=== PATIENT | female | born 1960 | race Caucasian/White ===

== ENCOUNTER → 2024-01-03 08:04 | Outpatient (REF) | payer OTHER, SELFPAY | LOC: WDC 08:04 | PROVIDERS: ATTENDING PHYSICIAN Nurse Practitioner Family | DX: N64.59 Other signs and symptoms in breast (principal); R22.2 Localized swelling, mass and lump, trunk; N63.32 Unspecified lump in axillary tail of the left breast | CPT/HCPCS: 76642 ==

== ENCOUNTER → 2024-05-30 17:04 | Outpatient (REF) | payer OTHER, SELFPAY | LOC: PAVMRI 17:04 | PROVIDERS: ATTENDING PHYSICIAN Student in an Organized Health Care Education/Training Program; FAMILY PHYSICIAN Physician Assistant Medical | DX: M79.672 Pain in left foot (principal) | CPT/HCPCS: 73718 ==

== ENCOUNTER → 2024-06-18 11:21 | Outpatient (REF) | payer OTHER, SELFPAY | LOC: RCS 11:21 | PROVIDERS: ATTENDING PHYSICIAN Student in an Organized Health Care Education/Training Program; FAMILY PHYSICIAN Physician Assistant Medical | DX: Z01.818 Encounter for other preprocedural examination (principal) | CPT/HCPCS: 93005 ==

== ENCOUNTER → 2024-07-19 12:15 | Outpatient (REF) | payer OTHER, SELFPAY | LOC: CLAB 12:15 | PROVIDERS: ATTENDING PHYSICIAN Student in an Organized Health Care Education/Training Program | DX: M20.12 Hallux valgus (acquired), left foot (principal) | CPT/HCPCS: 88304 ==

== ENCOUNTER → 2024-10-15 12:45 | Outpatient (REF) | payer OTHER, SELFPAY | LOC: HWRAD 12:45 | PROVIDERS: ATTENDING PHYSICIAN Physician Assistant Medical | DX: N84.1 Polyp of cervix uteri (principal) | CPT/HCPCS: 76830; 76856 ==

== ENCOUNTER → 2025-01-01 10:13 | Outpatient (REF) | payer OTHER, SELFPAY | LOC: HWRAD 10:13 | PROVIDERS: ATTENDING PHYSICIAN Physician Assistant Medical | DX: Z87.42 Personal history of other diseases of the female genital tract (principal) | CPT/HCPCS: 76830; 76856 ==

== ENCOUNTER → 2025-04-23 09:45 | Outpatient (REF) | payer OTHER, SELFPAY | LOC: RCS 09:45 | PROVIDERS: ATTENDING PHYSICIAN Internal Medicine Cardiovascular Disease; FAMILY PHYSICIAN Physician Assistant Medical; OTHER PHYSICIAN Surgery | DX: R94.31 Abnormal electrocardiogram [ECG] [EKG] (principal) | CPT/HCPCS: 93017; 93350 ==